=== PATIENT | male | born 1960 | race Two or more races ===

== ENCOUNTER 2016-10-21 08:25 | Inpatient (IN) | payer OTHER ==
[2016-10-21 09:31] VITALS: BMI 23.8
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
[2016-10-21] MEDS ORDERED: MAGNESIUM CITRATE 300 ML BOTTLE PO PRN (12:50)
[2016-10-21] MEDS ORDERED: LOPERAMIDE HCL 2 MG CAPSULE PO PRN (12:50)
[2016-10-21] MEDS ORDERED: P-EPHED 60MG/TRIPROLIDI 2.5MG TABLET PO PRN (12:50)
[2016-10-21] MEDS ORDERED: guaiFENesin/D-METHORPHAN HB 10 ML UNIT-DOSE CUPS PO PRN (12:50)
[2016-10-21] MEDS ORDERED: IBUPROFEN 400 MG TABLET (FP) PO PRN (12:50)
[2016-10-21] MEDS ORDERED: NICOTINE POLACRILEX 2 MG GUM BUC PRN (12:50)
[2016-10-21] MEDS ORDERED: MAG HYDROX/AL HYDROX/SIMETH 30 ML UNIT-DOSE CUP PO PRN (12:50)
[2016-10-21] MEDS ORDERED: MENTHOL/PHENOL 1 EACH UD MM PRN (12:50)
[2016-10-21] MEDS ORDERED: diphenhydrAMINE HCL 50 MG CAPSULE PO PRN (12:50)
[2016-10-21] MEDS ORDERED: MAGNESIUM HYDROX 2400MG/30ML ORAL SUSPENSION 30 ML CUP PO PRN (12:50)
[2016-10-21] MEDS ORDERED: ACETAMINOPHEN 325 MG TABLET (FP) PO PRN (12:50)
[2016-10-21] MEDS ORDERED: hydrOXYzine PAMOATE 25 MG CAPSULE (FP) PO PRN (12:50)
[2016-10-21] MEDS ORDERED: ALBUTEROL SO4 6.7 GM HFA INHALER IH PRN (12:53)
[2016-10-21] MEDS ORDERED: METHADONE HCL 10 MG TABLET (FOR DETOX USE ONLY) PO ONE ×2 (12:55→23:00)
[2016-10-21] MEDS: chlordiazePOXIDE HCL 25 MG CAPSULE PO PRN ×2 (13:32→20:23)
[2016-10-21] MEDS: NICOTINE 14 MG/24 HOURS TOPICAL PATCH TD SCH (13:33)
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
[2016-10-21 17:06] LABS: HIV 1 & 2 AB NEGATIVE; HIV 1 AGp24 NEGATIVE
[2016-10-21] MEDS: chlordiazePOXIDE HCL 25 MG CAPSULE PO SCH ×2 (17:16→22:35)
[2016-10-21 18:42] LABS: URINE APPEARANCE CLEAR; URINE BILIRUBIN NEGATIVE (NEGATIVE); URINE BLOOD NEGATIVE (NEGATIVE); URINE COLOR AMBER; URINE GLUCOSE (UA) NEGATIVE (NEGATIVE); URINE KETONE 1+ (NEGATIVE); URINE LEUK ESTERASE NEGATIVE (NEGATIVE); URINE NITRITE NEGATIVE (NEGATIVE); URINE UROBILINOGEN 4.0 E.U/dl E.U./dl (0.2-1.0)
[2016-10-21 18:43] LABS: URINE PROTEIN 1+ (NEGATIVE)
[2016-10-21 18:46] LABS: URINE MUCUS MODERATE; URINE RBC 1 /hpf (0-3); URINE WBC <1 /hpf (3-5)
[2016-10-21] MEDS: THIAMINE HCL 100 MG TABLET (FP) PO SCH (22:35)
[2016-10-21] MEDS: ZOLPIDEM TARTRATE 10 MG TABLET (PARK CARE ONLY) PO PRN (22:35)
[2016-10-22] MEDS: chlordiazePOXIDE HCL 25 MG CAPSULE PO SCH ×4 (05:31→22:28)
[2016-10-22 09:54] LABS: MCH 32.9 pg (25.7-33.7); MCHC 32.9 g/dl (32.0-35.9); MEAN CELL VOLUME 100.2 fl (80-96); MEAN PLT VOLUME 10.3 fl (7.5-11.1); PLATELET COUNT 163 K/MM3 (134-434); RDW 13.5 % (11.9-15.9); WHITE BLOOD COUNT 5.4 K/mm3 (4.0-10.0)
[2016-10-22] MEDS ORDERED: PRENATAL VITAMINS W/ FOLIC ACID TABLET (FP) PO SCH (10:00)
[2016-10-22] MEDS ORDERED: METHADONE HCL 10 MG TABLET (FOR DETOX USE ONLY) PO SCH (10:00)
[2016-10-22] MEDS: NICOTINE 14 MG/24 HOURS TOPICAL PATCH TD SCH (10:29)
[2016-10-22 10:41] LABS: ALBUMIN 4.5 g/dl (3.4-5.0); ALK PHOS 67 U/L (45-117); ANION GAP 11 (8-16); BILIRUBIN,TOTAL 1.2 mg/dL (0.2-1.0); CALCIUM 10.4 mg/dL (8.5-10.1); CO2 28 mmol/L (21-32); CREATININE 0.8 mg/dL (0.7-1.3); GLUCOSE,RANDOM 107 mg/dL (74-106); SGOT/AST 157 U/L (15-37); SGPT/ALT 114 U/L (12-78); TOT PROT 8.6 g/dl (6.4-8.2)
--- NOTE | 2016-10-22 12:35 | PN ---
[facility] CIWA - CIWA Score Nausea/Vomitin-No Nausea/No Vomiting Muscle Tremors: 4-Moderate,w/Arms Extend Anxiety: 4-Mod. Anxious/Guarded Agitation: 4-Moderately Restless Paroxysmal Sweats: 1-Minimal Palms Moist Orientation: 0-Oriented Tacttile Disturbances: 3-Moderate Itch/Numb/Burn Auditory Disturbances: 0-None Visual Disturbances: 0-None Headache: 0-None Present CIWA-Ar Total Score: 16 S COWS - Scale Resting Pulse: 1= MS 81-100 Sweatin= Chills/Flushing Restless Observation: 3= Extraneous Movement Pupil Size: 2= Moderately Dilated Bone or Joint Aches: 4=Acute Joint/Muscle Pain Runny Nose/ Eye Tearin= Nasal Congestion GI Upset > 30mins: 1= Stomach Cramp Tremor Observation of Outstretched Hands: 2= Slight Tremor Visible Yawning Observation: 2= >3x During Session Anxiety or Irritability: 2=Irritable/Anxious Goose Flesh Skin: 0=Smooth Skin COWS Score: 19 S Progress Note (SOAP) Subjective: ANXIETY,HOT/COLD SWEATS,TREMORS, FATIGUE,IRRITABILTY. Objective: 10/22/16 12:33 Vital Signs Temperature 97.7 F 10/22/16 10:01 Pulse Rate 87 10/22/16 10:01 Respiratory Rate 18 10/22/16 10:01 Blood Pressure 112/80 10/22/16 10:01 O2 Sat by Pulse Oximetry (%) Laboratory Last Values WBC 5.4 K/mm3 (4.0-10.0) D 10/22/16 06:00 RBC 4.67 M/mm3 (4.00-5.60) 10/22/16 06:00 Hgb 15.4 GM/dL (11.7-16.9) 10/22/16 06:00 Hct 46.7 % (35.4-49) 10/22/16 06:00 MCV 100.2 fl (80-96) H 10/22/16 06:00 MCHC 32.9 g/dl (32.0-35.9) 10/22/16 06:00 RDW 13.5 % (11.9-15.9) 10/22/16 06:00 Plt Count 163 K/MM3 (134-434) 10/22/16 06:00 MPV 10.3 fl (7.5-11.1) 10/22/16 06:00 Sodium 133 mmol/L (136-145) L 10/22/16 06:00 Potassium 3.9 mmol/L (3.5-5.1) 10/22/16 06:00 Chloride 94 mmol/L (98-107) L 10/22/16 06:00 Carbon Dioxide 28 mmol/L (21-32) 10/22/16 06:00 Anion Gap 11 (8-16) 10/22/16 06:00 BUN 9 mg/dL (7-18) D 10/22/16 06:00 Creatinine 0.8 mg/dL (0.7-1.3) 10/22/16 06:00 Creat Clearance w eGFR > 60 (>60) 10/22/16 06:00 Random Glucose 107 mg/dL (74-106) H 10/22/16 06:00 Calcium 10.4 mg/dL (8.5-10.1) H 10/22/16 06:00 Total Bilirubin 1.2 mg/dL (0.2-1.0) H 10/22/16 06:00 AST 157 U/L (15-37) H 10/22/16 06:00 ALT 114 U/L (12-78) H 10/22/16 06:00 Alkaline Phosphatase 67 U/L (45-117) 10/22/16 06:00 Total Protein 8.6 g/dl (6.4-8.2) H 10/22/16 06:00 Albumin 4.5 g/dl (3.4-5.0) 10/22/16 06:00 Urine Color Shannan 10/21/16 17:45 Urine Appearance Clear 10/21/16 17:45 Urine pH 7.0 (5.0-8.0) 10/21/16 17:45 Ur Specific Fischer 1.019 (1.001-1.035) 10/21/16 17:45 Urine Protein 1+ (NEGATIVE) H 10/21/16 17:45 Urine Glucose (UA) Negative (NEGATIVE) 10/21/16 17:45 Urine Ketones 1+ (NEGATIVE) H 10/21/16 17:45 Urine Blood Negative (NEGATIVE) 10/21/16 17:45 Urine Nitrite Negative (NEGATIVE) 10/21/16 17:45 Urine Bilirubin Negative (NEGATIVE) 10/21/16 17:45 Urine Urobilinogen 4.0 e.u/dl E.U./dl (0.2-1.0) 10/21/16 17:45 Ur Leukocyte Esterase Negative (NEGATIVE) 10/21/16 17:45 Urine RBC 1 /hpf (0-3) 10/21/16 17:45 Urine WBC <1 /hpf (3-5) 10/21/16 17:45 Urine Mucus Moderate 10/21/16 17:45 RPR Titer Nonreactive (NONREACTIVE) 10/22/16 06:00 HIV 1&2 Antibody Screen Negative 10/21/16 10:30 HIV P24 Antigen Negative 10/21/16 10:30 LABS NOTED Assessment: 10/22/16 12:35 WITHDRAWAL SX Plan: CONTINUE DETOX
--- NOTE | 2016-10-22 15:29 | EKG ---
Test Reason : Blood Pressure : / mmHG Vent. Rate : 090 BPM Atrial Rate : 090 BPM P-R Int : 170 ms QRS Dur : 092 ms QT Int : 364 ms P-R-T Axes : 065 052 058 degrees QTc Int : 445 ms NORMAL SINUS RHYTHM POSSIBLE LEFT ATRIAL ENLARGEMENT BORDERLINE ECG NO PREVIOUS ECGS AVAILABLE Confirmed by CHAYA ASCENCIO, GUERO ([id number]) on 10/22/2016 3:29:31 PM Referred By: Og Cosme Confirmed By:GUERO ALRKIN MD
[2016-10-22] MEDS: chlordiazePOXIDE HCL 25 MG CAPSULE PO PRN (18:58)
[2016-10-22] MEDS: ZOLPIDEM TARTRATE 10 MG TABLET (PARK CARE ONLY) PO PRN (22:28)
[2016-10-22] MEDS: THIAMINE HCL 100 MG TABLET (FP) PO SCH (22:28)
[2016-10-22 22:52] VITALS: BP 114/81; PULSE 105; TEMP 97
[2016-10-23] MEDS ORDERED: METHADONE HCL 5 MG TABLET (FOR DETOX USE ONLY) PO SCH (10:00)
[2016-10-23] MEDS ORDERED: chlordiazePOXIDE 5 MG CAPSULE PO SCH (17:00)
[2016-10-24] MEDS ORDERED: chlordiazePOXIDE HCL 10 MG CAPSULE PO SCH (17:00)
[2016-10-25] MEDS ORDERED: METHADONE HCL 10 MG TABLET (FOR DETOX USE ONLY) PO SCH (10:00)
[2016-10-26] MEDS ORDERED: METHADONE HCL 5 MG TABLET (FOR DETOX USE ONLY) PO SCH (06:00)
--- NOTE | 2016-12-08 15:11 | DS ---
[facility] Detox Discharge Summary Admission Date: 10/21/16 Discharge Date: 10/23/16 - History Present History: Alcohol Dependence, Opioid Dependence Pertinent Past History: Asthma Hep C - Physical Exam Results Vital Signs: Vital Signs Temperature 97.0 F L 10/22/16 22:52 Pulse Rate 105 H 10/22/16 22:52 Respiratory Rate 19 10/22/16 22:52 Blood Pressure 114/81 10/22/16 22:52 O2 Sat by Pulse Oximetry (%) Pertinent Admission Physical Exam Findings: Withdrawal sx. Laboratory Tests 10/21/16 10/21/16 10/22/16 10:30 17:45 06:00 WBC 5.4 D RBC 4.67 Hgb 15.4 Hct 46.7 MCV 100.2 H MCHC 32.9 RDW 13.5 Plt Count 163 MPV 10.3 Sodium Potassium Chloride Carbon Dioxide Anion Gap BUN Creatinine Creat Clearance w eGFR Random Glucose Calcium Total Bilirubin AST ALT Alkaline Phosphatase Total Protein Albumin Urine Color Shannan Urine Appearance Clear Urine pH 7.0 Ur Specific Harvey 1.019 Urine Protein 1+ H Urine Glucose (UA) Negative Urine Ketones 1+ H Urine Blood Negative Urine Nitrite Negative Urine Bilirubin Negative Urine Urobilinogen 4.0 e.u/dl Ur Leukocyte Esterase Negative Urine RBC 1 Urine WBC <1 Urine Mucus Moderate RPR Titer HIV 1&2 Antibody Screen Negative HIV P24 Antigen Negative 10/22/16 10/22/16 06:00 06:00 WBC RBC Hgb Hct MCV MCHC RDW Plt Count MPV Sodium 133 L Potassium 3.9 Chloride 94 L Carbon Dioxide 28 Anion Gap 11 BUN 9 D Creatinine 0.8 Creat Clearance w eGFR > 60 Random Glucose 107 H Calcium 10.4 H Total Bilirubin 1.2 H AST 157 H ALT 114 H Alkaline Phosphatase 67 Total Protein 8.6 H Albumin 4.5 Urine Color Urine Appearance Urine pH Ur Specific Harvey Urine Protein Urine Glucose (UA) Urine Ketones Urine Blood Urine Nitrite Urine Bilirubin Urine Urobilinogen Ur Leukocyte Esterase Urine RBC Urine WBC Urine Mucus RPR Titer Nonreactive HIV 1&2 Antibody Screen HIV P24 Antigen labs noted - Treatment Patient has Accepted a Rehab Referral to: [facility] - Medication Discharge Medications: Ambulatory Orders Albuterol Sulfate Inhaler - [Ventolin HFA Inhaler -] 2 inh PO Q4H PRN 11/14/13 Mirtazapine [Remeron -] 30 mg PO HS #30 tablet 05/02/14 - Diagnosis (1) Alcohol dependence with uncomplicated withdrawal Status: Acute (2) Nicotine dependence Status: Acute Qualifiers: Nicotine product type: cigarettes Substance use status: in withdrawal Qualified Code(s): F17.213 - Nicotine dependence, cigarettes, with withdrawal (3) Opioid dependence with withdrawal Status: Acute (4) Asthma Status: Chronic Qualifiers: Asthma severity: mild intermittent Asthma complication type: uncomplicated Qualified Code(s): J45.20 - Mild intermittent asthma, uncomplicated (5) History of hepatitis C Status: Chronic - AMA Did Patient Leave Against Medical Advice: Yes
== END 2016-10-23 00:10 | disposition left against medical advice (07) | DRG 770 ==
LOC: YASAS 08:25 → Y3N 12:06
PROVIDERS: ADMIT Internal Medicine; ATTEND Internal Medicine
PROC: HZ2ZZZZ Detoxification Services for Substance Abuse Treatment (ICD-10-PCS; principal; 2016-10-23)
DX: F11.23 Opioid dependence with withdrawal (principal); F10.230 Alcohol dependence with withdrawal, uncomplicated; F17.210 Nicotine dependence, cigarettes, uncomplicated; F19.24 Other psychoactive substance dependence with psychoactive substance-induced mood disorder; J45.20 Mild intermittent asthma, uncomplicated; B18.2 Chronic viral hepatitis C
CPT/HCPCS: 36415; 80053; 81003; 81015; 85027; 86593; 87389; 93005; 93010